=== PATIENT | female | born 1960 | race Caucasian/White ===

== ENCOUNTER 2019-03-13 18:41 | Inpatient (IN) | payer MEDICAID, OTHER ==
[~2019-03-13] VITALS: Ht 157.5 cm; Wt 46.4 kg
[2019-03-13] MEDS ORDERED: ALBUTEROL SULF 2.5 MG/0.5ML(0.5%) NEB SOLN NEB STA (18:43)
[2019-03-13] MEDS ORDERED: IPRATROPIUM BROM 0.5 MG/2.5ML INH SOL NEB ONE (18:45)
[2019-03-13] MEDS ORDERED: ACETAMINOPHEN 325 MG TAB PO ONE (19:00)
[2019-03-13 20:02] LABS: Basophils # (auto) 0.1 uL; Basophils % (auto) 0.9 % (0.0-2.0); Eosinophils # (auto) 0 uL; Hematocrit 42.2 % (36.0-46.0); Hemoglobin 13.8 g/dL (12.2-16.2); Lymphocytes # (auto) 0.6 uL; Lymphocytes % (auto) 8.3 % (10.0-50.0); Mean Corpuscular Hemoglobin 30.6 pg (28.0-32.0); Mean Corpuscular Hgb Conc. 32.8 g/dL (32.0-36.0); Mean Corpuscular Volume 93.3 fL (80.0-100.0); Monocytes # (auto) 0.6 uL; Monocytes % (auto) 7.7 % (0.0-12.0); Neutrophils # (auto) 6.4 uL; Neutrophils % (auto) 83.1 % (37.0-80.0); Platelet Count (auto) 269 10^3/uL (140-450); Red Blood Cells 4.52 10^6/uL (4.0-5.20); Red Cell Distribution Width 14.7 % (11.8-14.3); White Blood Cell 7.7 10^3/uL (4.4-10.8)
[2019-03-13 20:20] LABS: Albumin 3.4 g/dL (3.4-5.0); Anion Gap 10 (5-15); Blood Urea Nitrogen 7 mg/dL (7-18); Calcium 8.9 mg/dL (8.5-10.1); Carbon Dioxide 24 mmol/L (21-32); Chloride 97 mmol/L (98-107); Magnesium 1.9 mg/dL (1.6-2.6); Potassium 4.1 mmol/L (3.5-5.1); Sodium 131 mmol/L (136-145)
[2019-03-13 20:21] LABS: INR 0.93 (0.9-1.15); Partial Thromboplastin Time 28.9 sec (23.78-33.04)
[2019-03-13 20:25] LABS: Alanine Aminotransferase 21 U/L (13-56); Aspartate Aminotransferase 18 U/L (15-37); Bilirubin, Total 0.2 mg/dL (0.2-1.0); GFR African American 70 mL/min; GFR Non-African American 58 mL/min; Total Protein 7.7 g/dL (6.4-8.2)
[2019-03-13 20:29] LABS: Alkaline Phosphatase 113 U/L (45-117)
[2019-03-13 20:31] LABS: Urine Bacteria NONE SEEN /hpf (None Seen); Urine Blood Negative /uL (Negative); Urine WBC <1 /hpf (0 - 5)
[2019-03-13 20:34] LABS: BUN/Creatinine Ratio 6.7
[2019-03-13 20:36] LABS: Glucose 540 mg/dL (74-106)
[2019-03-13] MEDS ORDERED: SODIUM CHLORIDE 0.9% 1,000 ML IV ONE ×3 (21:00→23:45)
[2019-03-13] MEDS ORDERED: SODIUM CHLORIDE 0.9% 500 ML IV ONE (22:25)
[2019-03-13] MEDS ORDERED: InsuLIN REG 1unit/0.01ml Soln (100units/ml) IV ONE ×2 (22:30→23:15)
[2019-03-13] MEDS ORDERED: methylPREDNISolone SOD SUCC 125 MG/2 ML VL IV ONE (22:30)
[2019-03-13] MEDS ORDERED: LEVOFLOXACIN 500MG 100 ML IV ONE (22:30)
[2019-03-13] MEDS ORDERED: ALBUTEROL SULF 2.5 MG/0.5ML(0.5%) NEB SOLN NEB ONE (22:30)
[2019-03-13] MEDS ORDERED: ONDANSETRON HCL 4 MG/2 ML VIAL IV PRN (23:45)
[2019-03-13] MEDS ORDERED: DEXTROSE (50%) 50ML SYRG IV PRN (23:45)
[2019-03-14] VITALS (8 sets, daily range): BP systolic 106–127; BP diastolic 64–74
[2019-03-14] MEDS ORDERED: ALBUTEROL SULF 2.5 MG/0.5ML(0.5%) NEB SOLN NEB ONE
[2019-03-14] MEDS ORDERED: LORazepam 2MG/ML-1ML VIAL IM ONE
[2019-03-14] MEDS ORDERED: LORazepam 2MG/ML-1ML VIAL IV PRN
[2019-03-14] MEDS ORDERED: IPRATROPIUM BROM 0.5 MG/2.5ML INH SOL NEB ONE
--- NOTE | 2019-03-14 01:30 | NUR ---
Telemetry admit from [facility] admitted to Telemetry unit. Patient oriented to RANDY SHEN, primary RN, unit, room, bed, and unit policies regarding patient care and visiting hours. Patient now on continuous telemetry monitoring, tele box #17 and telemetry reading on arrival to unit is sinus tach 110. Patient placed on bedside oxygen on 4L, weighed by bedscale and encouraged to call if they need something. Bed locked in lowest position, side rails upx2, call light within reach. All questions and concerns addressed, patient verbalized understanding.
[2019-03-14] MEDS ORDERED: METF-370 PO (02:26)
[2019-03-14] MEDS ORDERED: GABA300C10 PO (02:26)
[2019-03-14] MEDS ORDERED: ASPI81TA27 PO (02:26)
[2019-03-14] MEDS ORDERED: GLIP-116 PO (02:27)
[2019-03-14] MEDS ORDERED: NAP500T PO (02:27)
[2019-03-14] MEDS ORDERED: HYDR-531 PO (02:27)
[2019-03-14] MEDS ORDERED: SITA100T7 PO (02:27)
[2019-03-14] MEDS: IPRATROPIUM BROM 0.5 MG/2.5ML INH SOL NEB SCH ×6 (03:55→22:28)
[2019-03-14] MEDS: ALBUTEROL SULF 2.5 MG/0.5ML(0.5%) NEB SOLN NEB SCH ×6 (03:55→22:28)
[2019-03-14] MEDS: methylPREDNISolone SOD SUCC 40 MG/ML VL IV SCH ×3 (06:29→21:08)
[2019-03-14] MEDS: ACCU-CHEK COMFORT CURVE STRIP VI SCH ×4 (06:30→21:35)
[2019-03-14] MEDS: InsuLIN REG 1unit/0.01ml Soln (100units/ml) SC SCH ×4 (06:30→21:35)
[2019-03-14 07:19] LABS: Basophils # (auto) 0 uL; Basophils % (auto) 0.4 % (0.0-2.0); Eosinophils # (auto) 0 uL; Hematocrit 41.2 % (36.0-46.0); Hemoglobin 13.8 g/dL (12.2-16.2); Lymphocytes # (auto) 0.4 uL; Lymphocytes % (auto) 4.4 % (10.0-50.0); Mean Corpuscular Hemoglobin 31.1 pg (28.0-32.0); Mean Corpuscular Hgb Conc. 33.5 g/dL (32.0-36.0); Mean Corpuscular Volume 92.9 fL (80.0-100.0); Monocytes # (auto) 0.1 uL; Monocytes % (auto) 1.1 % (0.0-12.0); Neutrophils # (auto) 8.2 uL; Neutrophils % (auto) 94.1 % (37.0-80.0); Nucleated Red Blood Cells % 0.1 %; Platelet Count (auto) 274 10^3/uL (140-450); Red Blood Cells 4.43 10^6/uL (4.0-5.20); Red Cell Distribution Width 14.6 % (11.8-14.3); White Blood Cell 8.7 10^3/uL (4.4-10.8)
--- NOTE | 2019-03-14 07:35 | NUR ---
Opening Shift Note Assumed care of patient, sleeping with,no S/S of distress or pain, respirations even and un-labored. N/C intact, delivering 3L O2 to patient. HOB 30degrees, side-rails upx2 for safety. Call light within reach, will continue to monitor for changes Q1hr and PRN.
[2019-03-14 07:40] LABS: Calcium 9.1 mg/dL (8.5-10.1); Potassium 4.3 mmol/L (3.5-5.1)
[2019-03-14 07:43] LABS: BUN/Creatinine Ratio 15.4
[2019-03-14] MEDS: cefTRIAXone 1GM/50ML D5W 50 ML IV SCH (09:39)
[2019-03-14] MEDS: AZITHROMYCIN 500MG/ 250ML 250 ML IV SCH (10:24)
[2019-03-14] MEDS: PANTOPRAZOLE 40 MG TAB PO SCH (10:25)
--- NOTE | 2019-03-14 13:43 | NUR ---
PAGED DR. NELSON IN REGARDS TO RESUMING PATIENT'S HOME MEDICATIONS: NORCO AND GABAPENTIN. AWAITING REPLY.
[2019-03-14] MEDS: HYDROcodone-ACET 10/325MG TAB PO PRN (15:57)
--- NOTE | 2019-03-14 19:45 | NUR ---
Opening Shift Note Assumed care of patient, awake and alert. No S/S of distress/SOB or pain. Bed locked in lowest position, side rails upx2, call light within reach. Instructed on POC and to call for assist PRN, will continue to monitor for changes Q1hr and PRN.
[2019-03-14] MEDS: GABAPENTIN 300 MG CAP PO SCH (21:08)
[2019-03-15] MEDS: IPRATROPIUM BROM 0.5 MG/2.5ML INH SOL NEB SCH ×6 (01:53→22:21)
[2019-03-15] MEDS: ALBUTEROL SULF 2.5 MG/0.5ML(0.5%) NEB SOLN NEB SCH ×6 (01:54→22:21)
[2019-03-15 05:20] LABS: Basophils # (auto) 0 uL; Basophils % (auto) 0.1 % (0.0-2.0); Eosinophils # (auto) 0 uL; Hematocrit 40.8 % (36.0-46.0); Hemoglobin 13.8 g/dL (12.2-16.2); Lymphocytes # (auto) 0.8 uL; Lymphocytes % (auto) 8.2 % (10.0-50.0); Mean Corpuscular Hemoglobin 31.2 pg (28.0-32.0); Mean Corpuscular Hgb Conc. 33.8 g/dL (32.0-36.0); Mean Corpuscular Volume 92.2 fL (80.0-100.0); Monocytes # (auto) 0.4 uL; Monocytes % (auto) 3.6 % (0.0-12.0); Neutrophils # (auto) 8.7 uL; Neutrophils % (auto) 88.1 % (37.0-80.0); Nucleated Red Blood Cells % 0.1 %; Platelet Count (auto) 295 10^3/uL (140-450); Red Blood Cells 4.43 10^6/uL (4.0-5.20); Red Cell Distribution Width 14.6 % (11.8-14.3); White Blood Cell 9.8 10^3/uL (4.4-10.8)
[2019-03-15 05:38] LABS: Calcium 9.6 mg/dL (8.5-10.1); Magnesium 2.4 mg/dL (1.6-2.6); Potassium 4.5 mmol/L (3.5-5.1)
[2019-03-15 05:43] VITALS: BP 122/73
[2019-03-15] MEDS: methylPREDNISolone SOD SUCC 40 MG/ML VL IV SCH ×3 (06:14→21:14)
[2019-03-15] MEDS: GABAPENTIN 300 MG CAP PO SCH ×3 (06:14→21:14)
[2019-03-15] MEDS: InsuLIN REG 1unit/0.01ml Soln (100units/ml) SC SCH ×4 (06:40→21:15)
[2019-03-15] MEDS: ACCU-CHEK COMFORT CURVE STRIP VI SCH ×4 (06:40→21:15)
[2019-03-15] MEDS: cefTRIAXone 1GM/50ML D5W 50 ML IV SCH (08:23)
[2019-03-15 08:43] VITALS: BP 114/74
[2019-03-15] MEDS: PANTOPRAZOLE 40 MG TAB PO SCH (10:00)
[2019-03-15] MEDS: AZITHROMYCIN 500MG/ 250ML 250 ML IV SCH (10:00)
[2019-03-15] MEDS: HYDROcodone-ACET 10/325MG TAB PO PRN ×2 (11:16→21:16)
[2019-03-15 12:42] VITALS: BP 102/71
[2019-03-15] MEDS: INSULIN LANTUS (GLARGINE) 1 /0.01ml (100units/ml) SC SCH (14:52)
--- NOTE | 2019-03-15 15:29 | NUR ---
DR JOHNSON NOTIFIED THAT PT BLOOD SUGAR 419 AT LUNCH. NEW ORDERS NOTED AND RECEIVED.
[2019-03-15 17:18] VITALS: BP 113/73
--- NOTE | 2019-03-15 19:05 | NUR ---
Opening Shift Note Assumed care of pt., awake and alert x4 sitting up at the foot of the bed with family at bedside. No S/S of distress or SOB, Respirations are even and unlabored on 4L-02 NC. Pt. reports pain of 8/10 in the shoulders and hips, will medicate per MD orders. Updated pt. on POC and instructed to call for assistance as needed, pt. verbalized understanding. Bed locked in lowest position, side rails up x2, call light within reach. Will continue to monitor q1hr and PRN.
[2019-03-15 21:30] VITALS: BP 110/72
--- NOTE | 2019-03-15 22:45 | NUR ---
Pt. reports difficulty breathing, O2 sats at 97% on 4L-NC. Re-positioned pt. to sit upright and instructed to breath through nose. Pt. states coughing attacks are making her have a hard time breathing. Will notify MD and await orders.
--- NOTE | 2019-03-15 22:50 | NUR ---
Spoke with Dr. Brenda Horner Updated on pt's condition. Received new orders, will implement and assess treatment.
[2019-03-15] MEDS ORDERED: MAGNESIUM SULFATE 1GM/100ML 100 ML IV ONE (23:00)
[2019-03-15] MEDS: guaiFENesin 200 MG/10 ML UD PO PRN (23:38)
[2019-03-16] MEDS: ALBUTEROL SULF 2.5 MG/0.5ML(0.5%) NEB SOLN NEB SCH ×6 (02:10→22:02)
[2019-03-16] MEDS: IPRATROPIUM BROM 0.5 MG/2.5ML INH SOL NEB SCH ×6 (02:10→22:02)
[2019-03-16] MEDS: ACETAMINOPHEN 500 MG TAB PO PRN ×2 (04:20→22:25)
[2019-03-16 05:33] VITALS: BP 129/85
[2019-03-16] MEDS: GABAPENTIN 300 MG CAP PO SCH ×3 (06:23→22:25)
[2019-03-16] MEDS: ACCU-CHEK COMFORT CURVE STRIP VI SCH ×4 (06:23→22:25)
[2019-03-16] MEDS: methylPREDNISolone SOD SUCC 40 MG/ML VL IV SCH ×3 (06:23→22:25)
[2019-03-16] MEDS: InsuLIN REG 1unit/0.01ml Soln (100units/ml) SC SCH ×4 (06:28→22:28)
[2019-03-16] MEDS: INSULIN LANTUS (GLARGINE) 1 /0.01ml (100units/ml) SC SCH (06:28)
[2019-03-16] MEDS: HYDROcodone-ACET 10/325MG TAB PO PRN ×2 (06:35→18:48)
[2019-03-16 08:41] VITALS: BP 142/81
[2019-03-16] MEDS: cefTRIAXone 1GM/50ML D5W 50 ML IV SCH (08:46)
[2019-03-16] MEDS: AZITHROMYCIN 500MG/ 250ML 250 ML IV SCH (09:44)
[2019-03-16] MEDS: PANTOPRAZOLE 40 MG TAB PO SCH (10:00)
[2019-03-16 11:53] VITALS: BP 131/86
[2019-03-16] MEDS: guaiFENesin 200 MG/10 ML UD PO PRN ×2 (13:23→22:25)
[2019-03-16 17:13] VITALS: BP 119/81
--- NOTE | 2019-03-16 20:00 | NUR ---
Opening Shift Note Assumed care of pt., awake and alert x4 sitting up in bed on the phone. No S/S of distress or SOB, Respirations are even and unlabored on 4L-02 NC. Pt. reports 6/10 headache pain, will medicate per MD orders. Updated pt. on POC and instructed to call for assistance as needed, pt. verbalized understanding. Bed locked in lowest position, side rails up x2, call light within reach. Will continue to monitor q1hr and PRN.
[2019-03-16 22:27] VITALS: BP 116/75
[2019-03-17] MEDS: ALBUTEROL SULF 2.5 MG/0.5ML(0.5%) NEB SOLN NEB SCH ×4 (02:30→14:37)
[2019-03-17] MEDS: IPRATROPIUM BROM 0.5 MG/2.5ML INH SOL NEB SCH ×4 (02:30→14:38)
[2019-03-17 04:14] VITALS: BP 116/75
[2019-03-17 05:07] VITALS: BP 106/69
[2019-03-17 05:53] LABS: Basophils # (auto) 0 uL; Basophils % (auto) 0.4 % (0.0-2.0); Eosinophils # (auto) 0 uL; Eosinophils % (auto) 0.2 % (0.0-7.0); Hematocrit 41.6 % (36.0-46.0); Hemoglobin 14.2 g/dL (12.2-16.2); Lymphocytes # (auto) 0.9 uL; Lymphocytes % (auto) 13.3 % (10.0-50.0); Mean Corpuscular Hemoglobin 31.2 pg (28.0-32.0); Mean Corpuscular Hgb Conc. 34.1 g/dL (32.0-36.0); Mean Corpuscular Volume 91.4 fL (80.0-100.0); Monocytes # (auto) 0.3 uL; Monocytes % (auto) 4.3 % (0.0-12.0); Neutrophils # (auto) 5.3 uL; Neutrophils % (auto) 81.8 % (37.0-80.0); Nucleated Red Blood Cells % 0.1 %; Platelet Count (auto) 334 10^3/uL (140-450); Red Blood Cells 4.55 10^6/uL (4.0-5.20); Red Cell Distribution Width 13.9 % (11.8-14.3); White Blood Cell 6.5 10^3/uL (4.4-10.8)
[2019-03-17] MEDS: methylPREDNISolone SOD SUCC 40 MG/ML VL IV SCH ×2 (06:09→14:00)
[2019-03-17] MEDS: GABAPENTIN 300 MG CAP PO SCH (06:09)
[2019-03-17 06:11] LABS: BUN/Creatinine Ratio 34.8; Calcium 9.2 mg/dL (8.5-10.1); Magnesium 2.3 mg/dL (1.6-2.6); Potassium 4.2 mmol/L (3.5-5.1)
[2019-03-17] MEDS: HYDROcodone-ACET 10/325MG TAB PO PRN ×2 (06:11→13:21)
[2019-03-17] MEDS: ACCU-CHEK COMFORT CURVE STRIP VI SCH ×2 (06:11→11:40)
[2019-03-17] MEDS: INSULIN LANTUS (GLARGINE) 1 /0.01ml (100units/ml) SC SCH (06:26)
[2019-03-17] MEDS: InsuLIN REG 1unit/0.01ml Soln (100units/ml) SC SCH ×2 (06:26→11:30)
[2019-03-17] MEDS: PANTOPRAZOLE 40 MG TAB PO SCH (08:29)
[2019-03-17] MEDS: cefTRIAXone 1GM/50ML D5W 50 ML IV SCH (08:29)
[2019-03-17 09:00] VITALS: BP 140/73
[2019-03-17] MEDS: AZITHROMYCIN 500MG/ 250ML 250 ML IV SCH (09:13)
[2019-03-17] MEDS ORDERED: AMOXICILLIN/CLAVUL 875 MG TAB PO ONE (10:45)
[2019-03-17 13:00] VITALS: BP 130/80
[2019-03-17 13:23] VITALS: BP 130/80
--- NOTE | 2019-03-17 16:24 | NUR ---
DISCHARGE INSTRUCTIONS GIVEN TO PT, VERBALIZED UNDERSTANDING. PT DISCHARGED HOME, LEAVING FACILITY VIA CAR.
== END 2019-03-17 16:15 | disposition home or self-care (01) | DRG 133 ==
LOC: ER 18:41 → TELE 03-14 00:17 → TELE-WESTW 03-14 01:12
PROVIDERS: ADMIT Nurse Practitioner Family; ATTEND Internal Medicine
DX: J96.20 Acute and chronic respiratory failure, unspecified whether with hypoxia or hypercapnia (principal); J18.1 Lobar pneumonia, unspecified organism; Z99.81 Dependence on supplemental oxygen; J44.0 Chronic obstructive pulmonary disease with (acute) lower respiratory infection; E11.65 Type 2 diabetes mellitus with hyperglycemia; J20.9 Acute bronchitis, unspecified; J44.1 Chronic obstructive pulmonary disease with (acute) exacerbation; E78.5 Hyperlipidemia, unspecified; Z87.891 Personal history of nicotine dependence
CPT/HCPCS: 36415; 36600; 71046; 80048; 80053; 81001; 82805; 82962; 83036; 83605; 83735; 83880; 84484; 85025; 85610; 85730; 87040; 87070; 87205; 93005; 94640; 94761; G0378; J0696; J1815; J1956